=== PATIENT | female | born 1975 | race Caucasian/White ===

== ENCOUNTER 2023-06-27 07:54 | Outpatient (CLI) | payer OTHER, SELFPAY ==
--- NOTE | ~2023-06-27 | MM_ITS ---
EXAMINATION: MM screening renee BI w peter HISTORY: Screening mammogram TECHNIQUE: Craniocaudal and mediolateral oblique 3-D tomosynthesis images were obtained and synthetic 2-D images were generated. CAD analysis was submitted and interpreted. COMPARISON: No prior mammogram is available for comparison at this institution. BREAST PARENCHYMAL COMPOSITION: There are scattered areas of fibroglandular density. FINDINGS: No suspicious mass, calcification, or architectural distortion are identified in either og ast to suggest malignancy. IMPRESSION: 1. No mammographic evidence of malignancy. 2. Recommend routine screening mammography in one year. BI-RADS Category 1: Negative Reviewed, dictated and finalized at location A. Y CLERK
== END 2023-06-27 07:55 | disposition home or self-care (01) ==
PROVIDERS: PCP Family Medicine; Visit Provider Family Medicine
DX: Z12.31 Encounter for screening mammogram for malignant neoplasm of breast (principal)
CPT/HCPCS: 77063; 77067

== ENCOUNTER 2023-11-29 09:46 | Outpatient (CLI) | payer OTHER, SELFPAY ==
[2023-11-29 10:16] LABS: Basophils Percent Auto 0.7 % (0.2-1.2); Eosinophils Percent Auto 0.7 % (0-4.4); Hematocrit 41.3 % (37.0-47.0); Hemoglobin 14.3 g/dL (12.0-15.0); Immature Granulocyte Absolute 0.01 K/mm3 (0.00-0.031); Immature Granulocyte Percent A 0.2 % (0-0.5); Lymphocytes Absolute Auto 1.09 K/mm3 (0.9-3.2); Lymphocytes Percent Auto 20.3 % (18.3-44.2); Mean Corpuscular HGB Conc 34.6 g/dl (32-36); Mean Corpuscular Hemoglobin 33.1 pg (26-34); Mean Corpuscular Volume 95.6 fl (80-100); Mean Platelet Volume 10.9 fl (7.4-10.4); Monocytes Absolute Auto 0.4 K/mm3 (0.1-0.6); Monocytes Percent Auto 6.5 % (2.6-8.5); Neutrophils Absolute Auto 3.8 K/mm3 (1.3-6.7); Neutrophils Percent Auto 71.6 % (45.5-73.1); Platelet Count Result 213 k/mm3 (150-375); Red Blood Count 4.32 M/mm3 (4.2-5.4); Red Cell Distribution Width 11.5 % (11.5-14.5); White Blood Count 5.4 K/mm3 (4.5-10.0)
[2023-11-29 11:02] LABS: Vitamin D 25 Hydroxy 63.2 ng/mL
== END 2023-11-29 09:47 | disposition home or self-care (01) ==
LOC: ANHLAB 09:48
PROVIDERS: PCP Family Medicine; Visit Provider Nurse Practitioner Obstetrics & Gynecology
DX: N93.9 Abnormal uterine and vaginal bleeding, unspecified (principal)
CPT/HCPCS: 36415; 82306; 84443; 85025

== ENCOUNTER 2023-12-07 08:10 | Outpatient (CLI) | payer OTHER, SELFPAY ==
--- NOTE | ~2023-12-07 | US_ITS ---
US pelvic complete w TV Ordering provider: Skye Brown APRN History: . N93.9 - Abnormal uterine and vaginal bleeding, unspecified . Comparison: None. Technique: Transabdominal and endovaginal ultrasound of the pelvis (Doppler ultrasound interrogation techniques used as needed for this exam.) FINDINGS: CERVIX: Normal. UTERUS: Measures 7.8x 6.2x 4.6 cm in length which is within normal limits and is anteverted. No myom etrial masses. Hyperechoic area in the lower segment measures 0.5 x 0.3 x 0.4 cm which may be calcifi ed or hemorrhagic cyst or polyp. Follow-up advised. ENDOMETRIUM: Normal in thickness measuring 0.5 mm on the right and 0.6 on the left.. No endometrial m asses, cysts or fluid. CUL DE SAC: No free fluid. RIGHT OVARY: Normal in size measuring 3.9x 2.3x 1.8 cm. Normal echotexture. Doppler vascular flow pre sent. LEFT OVARY: Normal in size measuring 3.2x 2.1x 2.5 cm. Normal echotexture. Doppler vascular flow pres ent. ADNEXA: Normal. No mass. IMPRESSION: Hyperechoic area in the lower segment of the uterus which may be calcified lesion or hemorrhagic cyst or a small polyp. Follow-up advised. Otherwise, normal pelvic ultrasound. Reviewed, dictated and finalized at location A. IMPRESSION: Hyperechoic area in the lower segment of the uterus which may be calcified lesi on or hemorrhagic cyst or a small polyp. Follow-up advised. Otherwise, normal p elvic ultrasound.
== END 2023-12-07 08:11 ==
LOC: GOSHIMG 08:11
PROVIDERS: PCP Family Medicine; Visit Provider Nurse Practitioner Obstetrics & Gynecology
DX: N93.9 Abnormal uterine and vaginal bleeding, unspecified (principal)
CPT/HCPCS: 76830; 76856

== ENCOUNTER 2024-03-04 07:44 | Outpatient (CLI) | payer OTHER, SELFPAY | END 2024-03-04 07:45 | disposition home or self-care (01) | LOC: ANHSURGERY 07:50 | PROVIDERS: PCP Family Medicine; Visit Provider Obstetrics & Gynecology | DX: R10.2 Pelvic and perineal pain (principal) | CPT/HCPCS: 36415; 86850; 86900; 86901 ==

== ENCOUNTER 2024-03-06 09:09 | Inpatient (IN) | payer OTHER, SELFPAY ==
--- NOTE | 2023-12-25 14:35 | PC.NURSE ---
Report to the Outpatient Waiting Room, entrance under the green pavilion located off [facility], at time ___0745____ on date __[id number] . Planned Procedure Time: 0945 . Time changes happen often and if your time is changed the preop area will call you the afternoon before. - You and your visitor will be asked to self-screen and do not enter if you have any COVID symptoms. - A mask is optional within the hospital at this time. Patients may have clear liquids (water, carbonated beverages, clear teas, apple juice) until 3 hours prior to surgery with a maximum of 20 ounces. STOP LIQUIDS AT 0645. - No food from midnight until time of surgery - Take the following medications with a SIP of water the morning of surgery: fluxoxetine DO NOT STOP ANY OF YOUR OTHER PRESCRIPTION MEDICATIONS PRIOR TO SURGERY ?EXCEPT THE FOLLOWING- N/A Please no make-up, nail slovak, hairspray, perfume, deodorant, or body powder the day of surgery. No jewelry (including any body piercings) or valuables the day of surgery, leave them at home. Please take a shower or bath the night before, or the morning of, surgery with an antibacterial soap. Wear comfortable, loose fitting clothing. - Jewelry must be removed prior to entering the operating room. Rings and piercings that are not removed may be cut off. - The hospital will not accept responsibility for valuables. - Please leave all valuables, including medications, at home the day of surgery. If you are going home after surgery, a licensed vacuum truck driver must drive you home. - NO public transportation without another adult if you receive anesthesia. - We recommend that an adult stay with you for 24 hours following discharge. - We also recommend that you do not drive, make important decision, drink alcoholic beverages, or take any drugs that were not prescribed by your health care provider for at least 24 hours after your discharge time. Follow any additional instructions given to you from your surgeon. If you or anyone in your household have experienced Covid symptoms in the past week, please notify your surgeon or the nurse liaison at the phone number below for possible testing. Telephone instructions given to _patient/Shelly__and asked if any additional questions and then verbalized understanding. Patient advised to call surgeon office or pre surgery nurse liaison [phone] if any additional questions.
[2023-12-25 14:44] VITALS: BMI 25.0
[2024-02-26 14:45] VITALS: BMI 25.3
--- NOTE | 2024-02-26 14:58 | SUR.PREOP ---
Report to the Outpatient Waiting Room, entrance under the green pavilion located off [facility], at time 0600 on date 03/06/24. Planned Procedure Time: 0730.? Time changes happen often and if your time is changed the preop area will call you the afternoon before. - You and your visitor will be asked to self-screen and do not enter if you have any COVID symptoms. Please call surgeon if you need to reschedule. - A mask is optional within the hospital at this time. Patients may have clear liquids (water, carbonated beverages, clear teas, apple juice) until 3 hours prior to surgery with a maximum of 20 ounces. - No food from midnight until time of surgery and no smoking - Infants may have breast milk until 4 hours before surgery, formula 6 hours prior to surgery. - Children will be allowed to drink immediately following surgery.? If applicable, please bring a bottle or sippy cup to assist with drinking. Juice, water, soda, and popsicles are readily available.? For infants on formula, please bring formula the day of surgery.? Pacifiers are allowed. Take only the following medications with a SIP of water on the morning of surgery: ____fluoxetine___ DO NOT STOP ANY OF YOUR OTHER PRESCRIPTION MEDICATIONS PRIOR TO SURGERY EXCEPT THE FOLLOWING Medications to discontinue per physician n/a Date to take last dose Please no make-up, nail wolof, hairspray, perfume, deodorant, or body powder the day of surgery.? No jewelry (including any body piercings) or valuables the day of surgery, leave them at home.? Please take a shower or bath the night before, or the morning of, surgery with an antibacterial soap.? Wear comfortable, loose fitting clothing.? Children are encouraged to wear pajamas. - Jewelry must be removed prior to entering the operating room.? Rings and piercings that are not removed may be cut off. - The hospital will not accept responsibility for valuables.? - Please leave all valuables, including medications, at home the day of surgery. If you are going home after surgery, a licensed armored car driver must drive you home.? - NO public transportation without another adult if you receive anesthesia. - We recommend that an adult stay with you for 24 hours following discharge. - We also recommend that you do not drive, make important decision, drink alcoholic beverages, or take any drugs that were not prescribed by your health care provider for at least 24 hours after your discharge time. For Pediatric surgeries, we recommend two adults accompany the child home. Follow any additional instructions given to you from your surgeon. Telephone instructions given to _patient_and asked if any additional questions and then verbalized understanding. Patient advised to call surgeon office or pre surgery nurse liaison [phone] if any additional questions.
[2024-03-06] VITALS (18 sets, daily range): BP systolic 67–112; BP diastolic 34–63; PULSE 38–86; RESP 14–18; TEMP 36.3–37.3; O2SAT 95–100; BMI 26.1
--- NOTE | 2024-03-06 06:33 | WPDANESEPPF ---
Anes - Initial Pre Proc Eval Procedure: Operation Date: 03/06/24 07:30 Proposed Procedures p Robotic Assisted Total Vaginal Hysterectomy with Bilateral Salpingo-oophorectomy - Roberto Wadsworth MD Date/Time: 03/06/24 06:33 Surgeon: Roberto Wadsworth MD Pre Op Diagnosis: Pelvic Pain, Menorrhagia Patient Data Age: 48 Gender: F Height: 1.68 m Weight: 71.22 kg Allergies Allergy/AdvReac Type Severity Reaction Status Date / Time No Known Allergies Allergy Verified 02/26/24 15:00 Home Medications Medication Instructions Recorded Confirmed Type fluoxetine 20 mg capsule 20 mg PO DAILY #90 caps 01/04/24 02/26/24 Rx Patient hx anesthesia problems: none Family hx anesthesia problems: none Results Review: All pre-operative results and documents have been reviewed as part of the pre-operative evaluation. FORMERLY [facility], [facility]–1983 Surgical History Surgical History History of delivery History of tubal ligation Family History Family History Mother Hypertension Heart disease Social History Social History (Updated 03/06/24 @ 06:34 by Young Smith MD) Social History: Smoking packs per day: 1 Smoking cigarettes per day: 20.0 Years smoked: 30 Smoking pack-years: 30.00 Smoking status: Former smoker Tobacco type: cigarettes Second hand tobacco smoke exposure: Yes Smoking end date: 04/14/22 Alcohol intake: current Drinks per week: 1 Alcohol use details: occasionally Substance use: never Substance use type: does not use Last use: apr 2021 Lack of Transportation: No Lack of Food: Never True Current Housing: I Have Housing Concerned About Future Housing: No Difficulty Paying Gas/Electric Bills: No Difficulty Paying for Meds: No Currently Unemployed: No Education: Don't Know Difficulty w/ Childcare or Family Care: No Living arrangements: with family Occupation/Education: occupation Additional occupation/education comments: [employer] Gender identity (if verbalized by the patient): Female Sexual Orientation (if Verbalized by the Patient): Straight or Heterosexual Spiritual care concerns: No Anes - Eval Final PreProcedure Day of Procedure 03/06/24 06:33 Patient weight: normal Heart: regular rate and rhythm Lungs: clear to auscultation Airway: Mallampati scale class II Neurological: alert and oriented Last oral intake: >/= 8 hours ASA classification: II Emergent: no Anesthetic plan: proceed Anesthesia type and monitoring: general ETT and standard monitoring Results Review: All pre-operative results and documents have been reviewed as part of the pre-operative evaluation. Informed Consent: The patient's anesthetic plan and its attendant risks and benefits were discussed with the patient/family/POA. Questions were solicited and answers provided to the satisfaction of the patient/family/POA.
[2024-03-06] MEDS: LACTATED RINGERS 1,000 ML 30 ML IV CONT ×2 (06:50→09:15)
[2024-03-06] MEDS: SCOPOLAMINE 1 MG PATCH 1 PATCH TRANSDERM (07:02)
[2024-03-06] MEDS: KETOROLAC 15 MG/ML VIAL (*BKC) IV PUSH (07:02)
[2024-03-06] MEDS: ACETAMINOPHEN 500 MG TABLET 1000 MG PO ×3 (07:02→19:47)
--- NOTE | 2024-03-06 07:17 | WPDHPUPDATE1 ---
History and Physical Update Update Date/Time: 03/06/24 07:17 History and Physical has been reviewed, including an updated exam of the patient. There are NO changes in the patient's condition. Risks, benefits, and alternatives have been discussed and questions answered. Patient agrees to proceed with procedure.
[2024-03-06] MEDS: ceFAZolin 2 GM/D5W 50 ML 2 GM/50 ML BAG IVPB (07:26)
[2024-03-06 07:40] LABS: BEDSIDEPREGUCG Negative (Negative)
[2024-03-06] MEDS: BUPivacaine HCL 0.5% 10 ML AMP 9 ML INFILTRATE (08:06)
[2024-03-06] MEDS: fentaNYL CITRATE INJ (*CRX) 100 MCG/2 ML VIAL 25 MCG IV PUSH (09:18)
--- NOTE | 2024-03-06 09:19 | W.PM.PROC2 ---
Procedure Note - Detailed Date of Procedure 03/06/24 Pre-op Diagnosis Pelvic Pain, Menorrhagia Post-op Diagnosis Same Procedure Performed 1.Robotic assisted laparoscopic total vaginal hysterectomy with bilateral salpingo-oophorectomy 2. Lysis of adhesions Surgeon Roberto Wadsworth MD Admissions Assistant Arjun Anesthesia General Indications patient with long history of pelvic pain and menorrhagia she requested definitive treatment with hysterectomy. Findings Uterus slightly enlarged soft normal fallopian tubes and ovaries bilaterally, adhesion band at the middle lower abdomen which was lysed. Description of Procedure After informed consent was obtained she was taken to the operating room and general endotracheal anesthesia was administered. She was placed in low lithotomy position. An exam under anesthesia was performed. uterus palpated normal, no adnexal masses palpated. She was and prepped and draped in sterile fashion. Jackson catheter placed in bladder. Attention was turned to the vagina speculum was inserted. Single-tooth tenaculum placed on anterior lip of the cervix the uterus sounded to 9 cm. The cervix was dilated to a 8 Mondragon dilator. A size 8 uterine manipulator was inserted and secured. A size 3.0 colp cup was secured in the vagina. Then attention was turned to the abdomen with new sterile gloves. .25% marcaine injected subcutaneously. An incision was made horizontal 2 cm above the umbilicus. a Veress needle was inserted. Formation into the abdomen obtained with normal free flow of fluid and normal peritoneal pressures. A Pneumoperitoneum of 15 mm per mercury was obtained. A small incision was made approximately 6 cm lateral to the port on the left side of the port. A size 8mm robotic port was inserted under laparoscopic visualization into the abdomen on the left side. Attention was turned to the right side of the abdomen and Marcaine was injected subcutaneously and an incision was made and an 8 mm robotic port was inserted under laparoscopic visualization. Superior medial to this Marcaine was injected subcutaneously and a 10 mm health care assistant port was inserted under laparoscopic visualization. Robotic arms were secured to the ports. Attention was turned to the surgery consule. The right round ligament was ligated. The anterior leaf of the broad ligament was dissected anteriorly. The right side of the bladder was dissected from the lower uterine segment and upper cervix. The Infundibulopelvic ligament was ligated with vessel sealer. the ascending uterine vessels were ligated.The a posterior leaf of the broad ligament was further dissected. The uterine vessels The uterine vessels were ligated. Attention was turned to the left round ligament which was ligated and the anterior leaf of the broad ligament was dissected anteriorly. The rest of the vesicouterine peritoneum was dissected off of the uterus. Once the bladder was dissected below the colp cup then the Infundibulopelvic ligament was ligated. The ascending uterine vessels were ligated. The uterine arteries were ligated. The cardinal ligaments were ligated. This was done on both sides. An incision was made anterior colpotomy incision was made and this was carried around until the cervix was removed from the vagina. The uterus and cervix were removed through the vagina. The vaginal cuff was closed in a running fashion with 0 V lock suture with two sutures. Hemostasis was noted. The pelvis was irrigated. Hemostasis noted. Surgicil was applied in the pelvis. The patient was taken out of Trendelenburg position. The pneumoperitoneum was released and the ports were removed. The skin incisions were closed with 4 O Vicryl and Dermabond. The patient was extubated in operating room. The sponge count was correct x2. Patient tolerated procedure well and was taken to recovery in stable condition. Estimated Blood Loss 20 Urine Output 400 Drains No Packing No Pathology Yes ( uterus and cervix with right and left fallopian tube and ovaries) Complications No immediate complications Condition Stable Disposition PACU [facility] Billing Surgery - Charge Forward: Surgery Billing
[2024-03-06] MEDS: GLYCOPYRROLATE INJ (*SP) 0.2 MG/ML VIAL IV PUSH (09:37)
--- NOTE | 2024-03-06 11:40 | PC.NURSE ---
This patient, Leeann Will, was received from PACU on 03/06/24 at 1140. Patient/family oriented to unit policies and routines
[2024-03-06] MEDS: DEXTROSE 5%/0.45% SOD CHL 1,000 ML 125 ML IV CONT ×2 (11:58→19:50)
[2024-03-06] MEDS: SIMETHICONE 80 MG TAB.CHEW PO ×2 (12:41→19:47)
[2024-03-06] MEDS: KETOROLAC 30 MG/ML VIAL (*BKC) IV PUSH ×2 (12:42→19:47)
[2024-03-06] MEDS: ONDANSETRON INJ 4 MG/2 ML VIAL IV PUSH (16:50)
[2024-03-07 00:07] VITALS: BP 98/53; PULSE 68; RESP 16; TEMP 37.2; O2SAT 98
[2024-03-07 04:19] VITALS: BP 100/52; PULSE 58; RESP 16; TEMP 37.1; O2SAT 97
[2024-03-07] MEDS: ACETAMINOPHEN 500 MG TABLET 1000 MG PO ×2 (04:20→10:36)
[2024-03-07] MEDS: KETOROLAC 30 MG/ML VIAL (*BKC) IV PUSH (04:21)
[2024-03-07] MEDS: SIMETHICONE 80 MG TAB.CHEW PO ×2 (06:56→12:01)
[2024-03-07] MEDS: DOCUSATE SODIUM 100 MG CAPSULE PO (06:56)
[2024-03-07] MEDS: FLUoxetine HCL 20 MG CAPSULE PO (06:56)
[2024-03-07 07:40] VITALS: BP 103/57; PULSE 63; RESP 18; TEMP 37.5; O2SAT 100
--- NOTE | 2024-03-07 09:18 | WPDANESPN ---
Anes - Prog Note Post-Op Date/Time: 03/07/24 09:18 Cardiovascular status: normal Respiratory status: normal Airway patency: baseline Mental status: baseline Post-Op hydration status: normal Vital Signs: Last Vital Signs Temp 37.5 C 03/07/24 07:40 Pulse 63 03/07/24 07:40 Resp 18 03/07/24 07:40 BP 103/57 L 03/07/24 07:40 Pulse Ox 100 03/07/24 07:40 O2 Del Method Room Air 03/07/24 07:34 O2 Flow Rate 8 03/06/24 09:45 Pain Score (VAS): 2 I/O: Intake & Output 03/06/24 03/07/24 03/07/24 23:59 07:59 15:59 Intake Total 1240 1250 Output Total 500 925 Balance 740 325 Post-procedural complaints: none Patient Feedback: Patient satisfied with anesthetic care.
[2024-03-07] MEDS: IBUPROFEN 600 MG TABLET PO (10:37)
--- NOTE | 2024-03-20 10:24 | PM.DS ---
DS: Admitting Diagnosis Discharge Date 03/07/24 Admitting Diagnosis abnormal uterine bleeding DS: Discharge Diagnosis Discharge Diagnosis (1) Abnormal uterine bleeding: Code(s): N93.9 - Abnormal uterine and vaginal bleeding, unspecified Status: Acute DS: Summary Hospital Course Hospital Course: she was admitted on March 06. She underwent an uncomplicated robotic hysterectomy. Postop day 1 she had adequate pain control was tolerating regular food was ambulating positive flatus. She was discharged to home on postop day 1. Status at Discharge Functional status at discharge: independent ambulation Time Spent with Patient Time attestation: Total time spent providing and/or coordinating discharge services: Exam Const: General: healthy appearing and no acute distress HENMT: Head: normocephalic Eyes: General: appearance normal, both eyes and all related structures Resp: Effort & Inspection: normal respiratory effort GI: Inspection: normal to inspection Rectal Exam: other (incisions healing well) Skin: General skin exam: normal color Extrem: General: normal to inspection Psych: Appearance: grossly normal DS: Data Data Completed and Pending Completed studies during hospitalization: Pending at discharge 03/06/24 08:31 Surgical [PTH] Routine Discharge Plan Discharge Attending physician on discharge: Roberto Wadsworth Consulting providers: Young Smith; Richmond Waldron Discharging Clinician: Roberto Wadsworth Anticipated Discharge Date/Time: 03/07/24 10:27 Patient Disposition: Home, Self-Care Activity: may shower, no driving and pelvic rest Diet: regular Patient Instructions: Hysterectomy (DC) Stand Alone Forms: General Discharge Information Follow-up/Referrals: Roberto Wadsworth MD [Physician] - Keep Reg. Scheduled Appt. Discharge Medications: New hydrocodone-acetaminophen 5-325 mg Tablet 1 tablet PO Q3H PRN (Reason: Pain Rated 4-6) Qty: 25 0RF ibuprofen 600 mg Tablet 600 mg PO Q6HR Qty: 25 0RF Continued fluoxetine 20 mg capsule 20 mg PO DAILY Qty: 90 0RF Date of admission: 03/06/24 09:09 Primary Care Provider: Dea Telles Admitting Provider: Rboerto Wadsworth Attending physician on admission: Roberto Wadsworth Condition: Stable
== END 2024-03-07 13:03 | disposition home or self-care (01) | DRG 743 ==
LOC: ANHOB2 11:34
PROVIDERS: Admitting Provider Obstetrics & Gynecology; PCP Family Medicine; Visit Provider Obstetrics & Gynecology
PROC: 0UT9FZZ Resection of Uterus, Via Natural or Artificial Opening With Percutaneous Endoscopic Assistance (ICD-10-PCS; principal; 2024-03-06 07:30)
DX: N92.0 Excessive and frequent menstruation with regular cycle (principal); R10.2 Pelvic and perineal pain; Z87.891 Personal history of nicotine dependence; N73.6 Female pelvic peritoneal adhesions (postinfective)
CPT/HCPCS: 88307; 88342; A9270; J0690; J1100; J1596; J1885; J2250; J2405; J2704; J3010; J7030; J7120

== ENCOUNTER 2024-06-03 08:11 | Outpatient (CLI) | payer OTHER, SELFPAY ==
--- NOTE | ~2024-06-03 | CT_ITS ---
CT Scan of the Chest without Contrast: Clinical Indication: Lung cancer screening, nicotine dependence Technique: Contiguous sections were acquired throughout the chest without intravenous contrast. Dose reduction technique was used on this scan by utilizing automated exposure control and iterative recon struction technique. The dose-length product (DLP) was 75.00 mGy-cm. Findings: There is no evidence of any significant mediastinal, hilar or axillary lymphadenopathy. The mediastin al soft tissues appear normal. There is no evidence of pleural or pericardial effusion. The lungs are clear. No pulmonary nodules or infiltrates are noted. Images through the upper abdomen reveal no abnormalities. Impression: Lung RADS 1: Negative. 12 month follow-up screening CT advised. Reviewed, dictated and finalized at location . ATRIC CLINICAL DIETICIAN Impression: Lung RADS 1: Negative. 12 month follow-up screening CT advised.
== END 2024-06-03 08:12 | disposition home or self-care (01) ==
LOC: MICIMG 08:12
PROVIDERS: PCP Family Medicine; Visit Provider Student in an Organized Health Care Education/Training Program
DX: Z12.2 Encounter for screening for malignant neoplasm of respiratory organs (principal); Z87.891 Personal history of nicotine dependence
CPT/HCPCS: 71271

== ENCOUNTER 2024-06-04 12:31 | Outpatient (CLI) | payer OTHER, SELFPAY ==
--- NOTE | 2024-06-04 12:41 | ECHO_ITS ---
Patient Info Name: Leeann Will Age: 49 years : 1975 Gender: Female Ht: 66 in Wt: 162 lbs BSA: 1.86 m2 HR: 59 bpm BP: 114 / 61 mmHg Heart Rhythm: Sinus Rhythm Technical Quality: Good Exam Date: 06/04/2024 12:57 PM Exam Location: Echo Lab Patient Status: Outpatient Admit Date: 06/04/2024 Staff Ordering Physician: Nicole Ha PA-C Deputy Coroner Investigator: Tyra Mcfarland RDCS Attending Provider: Nicole Ha PA-C Referring Physician: Dilcia VILLANUEVA; Exam Type: CA echo doppler color flow Study Info Indications R01.1 - Cardiac murmur, unspecified Complete two-dimensional, color flow and Doppler transthoracic echocardiogram is performed. Summary 1. Complete two-dimensional, color flow and Doppler transthoracic echocardiogram is performed. 2. Left ventricular chamber dimension is normal. 3. Left ventricular systolic function is normal, estimated at 65-70%. 4. The left ventricular diastolic function is normal. 5. E/e' 8 is minimally elevated. 6. There is trace tricuspid valve regurgitation. 7. No pulmonary hypertension, estimated pulmonary arterial systolic pressure is 35 mmHg. 8. Dilated inferior vena cava with >50% collapse upon inspiration consistent with elevated right atrial pressure, 10 mmHg. Left Ventricle E/e' 8 is minimally elevated. Left ventricular chamber dimension is normal. Left ventricular systolic function is normal, estimated at 65-70%. The left ventricular diastolic function is normal. Right Ventricle Right ventricular systolic function is normal and with normal TAPSE 2.7 cm. Right ventricular chamber dimension is normal. Left Atria Left atrial chamber dimension is normal. Right Atria Right atrial chamber dimension is normal. Aortic Valve The aortic valve is trileaflet. There is no aortic valve stenosis. There is no aortic valve regurgitation. Pulmonic Valve There is no pulmonic regurgitation. Mitral Valve There is no mitral valve stenosis. There is no mitral valve regurgitation. Tricuspid Valve There is trace tricuspid valve regurgitation. No pulmonary hypertension, estimated pulmonary arterial systolic pressure is 35 mmHg. Pericardium/Pleural There is no pericardial effusion. Inferior Vena Cava Dilated inferior vena cava with >50% collapse upon inspiration consistent with elevated right atrial pressure, 10 mmHg. Aorta The aortic root size at the sinus of Valsalva is normal. Left Ventricular Outflow Tract Name Value Normal LVOT 2D LVOT Diameter 2.0 cm LVOT Doppler LVOT Peak Gradient 5 mmHg LVOT Mean Gradient 2 mmHg LVOT VTI 20 cm LVOT VTI/AV VTI Ratio 0.7 LVOT Stroke Volume 60 ml LVOT CO 3.5 l/min LVOT CI 1.9 l/min/m2 Pulmonic Valve Name Value Normal RVOT Doppler RVOT Peak Gradient 3 mmHg PV Doppler PV Peak Gradient 5 mmHg Mitral Valve Name Value Normal MV Doppler MV Decel [place] 619 cm/s2 MV PHT 48 ms MV Area (PHT) 4.6 cm2 4.0-5.0 MV Diastolic Function MV E Peak Velocity 102 cm/s MV A Peak Velocity 54 cm/s MV E/A 1.9 MV Decel Time 165 ms MV Annular TDI MV E/e' (Septal) 10.7 <=8.0 MV E/e' (Lateral) 7.7 <=8.0 MV E/e' (Average) 9.2 Tricuspid Valve Name Value Normal TV Regurgitation Doppler TR Peak Velocity 251 cm/s TR Peak Gradient 25 mmHg Estimated PAP/RSVP RA Pressure 10 mmHg <=5 PA Systolic Pressure 35 mmHg <36 RV Systolic Pressure 35 mmHg <36 Aorta Name Value Normal Ascending Aorta Ao Root Diameter (MM) 2.7 cm Ao Root Diam Index (MM) 1.4 cm/m2 Aortic Valve Name Value Normal AV Doppler AV Peak Velocity 132 cm/s AV Peak Gradient 7 mmHg AV Mean Gradient 3 mmHg AV VTI 29 cm AV Area (Cont Eq VTI) 2.1 cm2 >=3.0 AV Area (Cont Eq Marck) 2.4 cm2 AV Regurgitation 2D LVOT Area 3.0 cm2 Ventricles Name Value Normal LV Dimensions 2D/MM IVS Diastolic Thickness (2D) 0.7 cm 0.6-1.0 LVID Diastole (2D) 4.4 cm 3.8-5.2 LVIW Diastolic Thickness (2D) 0.7 cm 0.6-0.9 LVID Systole (2D) 2.3 cm 2.2-3.5 LVOT Diameter 2.0 cm LV Mass (2D Cubed) 89.95 g 67.00-162.00 LV Mass Index (2D Cubed) 48 g/m2 43-95 Relative Wall Thickness (2D) 0.30 LV Fractional Shortening/Ejection Fraction 2D/MM LV Fractional Shortening (2D) 46 % 27-45 LV EF (2D Teicholz) 78 % 54-74 LV Diastolic Volume (4C MOD) 45 ml LV EF (4C MOD) 62 % LV Diastolic Volume (2C MOD) 60 ml LV EF (2C MOD) 79 % LV Diastolic Volume (BP MOD) 52 ml 46-106 LV Diastolic Volume Index (BP MOD) 28 ml/m2 29-61 LV Systolic Volume (BP MOD) 15 ml 14-42 LV Systolic Volume Index (BP MOD) 8 ml/m2 8-24 LV EF (BP MOD) 71 % 54-74 LV Diastolic Length (4C) 7.7 cm LV Systolic Length (4C) 6.2 cm LV Stroke Volume (4C MOD) 27 ml Atria Name Value Normal LA Dimensions LA Dimension (MM) 4.0 cm 2.7-3.8 LA Volume (4C A-L) 42 ml LA Volume (BP A-L) 48 ml RA Dimensions RA Area (4C) 19.6 cm2 <=18.0 Report Signatures
--- OUTSIDE RECORDS SUMMARY | 2024-06-06 18:16 | XMS_ITS | Clinical Summary ---
Author Organization [facility] Address [address] [place] [address] Care Team Providers Care An/Ssn 2 4 Operator Name Role Phone Simon Porter MD Primary Care Provider [phone] Allergies No known active allergies Medications escitalopram (LEXAPRO) 10 mg tablet TAKE 1 TABLET(10 MG) BY MOUTH DAILY 90 tablet 12/10/2022 Active Active Problems Problem Noted Date Diagnosed Date BMI 25.0-25.9,adult 08/31/2022 Assessment & Plan (08/31/2022 8:09 AM CDT): Wt Readings from Last 3 Encounters: 08/31/22 70.9 kg (156 lb 6.4 oz) 03/29/22 68 kg (150 lb) 09/22/14 81.1 kg (178 lb 12.8 oz) Stable and at goal Subclinical hypothyroidism 08/31/2022 Anxiety 03/29/2022 Assessment & Plan (08/31/2022 8:09 AM CDT): Not at goal at this time Will do trial with lexapro 10 mg every day Assessment & Plan (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 Will start wellbutrin as it may also help her with quitting smoking Depression 09/28/2013 Overview (08/17/2016): DEPRESSIVE DISORDER NEC Assessment & Plan (08/31/2022 8:08 AM CDT): Not doing well at thsi time States that she is tired and montoya all the time States that she feels stressed, falls asleep early Had side effects to wellbutrin and stopped it States that she had some muscle and bone pain as well as weight gain Immunizations Name Administration Dates Next Due Influenza, Unspecified 03/29/2022(Deferr ed: Patient Refused),02/12/2022(Deferred: Patient Refused),07/13/2021(Deferred: Patient Refused) Tdap 08/15/2012 Surgical History Surgery Date Site/Laterality Comments SECTION 1997 section Medical History Medical History Date Comments Depression Depression Family History Relation Name Status Comments Brother Alive Father Alive Mother Alive Social History Tobacco Use Types Packs/Day Years Used Date Smoking Tobacco: Former Cigarettes 0.5 15 1 07/03/2006 - 05/02/2022 Alcohol Use Standard Drinks/Week Comments No 0 (1 standard drink = 0.6 oz pur e alcohol) PHQ-2 Answer Date Recorded PHQ-2 Total Score (If total score is 3 or more points, staff should administer the PHQ-9) 2 08/31/2022 Comments Unknown Sex and Gender Information Value Date Recorded Sex Assigned at Not on file Legal Sex 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 Gender Identity Not on file Sexual Orientation Not on file Obstetrics History Last Filed Vital Signs Vital Sign Reading Time Taken Comments Blood Pressure 110/66 08/31/2022 7:42 AM CDT Pulse 60 08/31/2022 7:42 AM CDT Temperature 36.7 ??C (98 ??F) 08/31/2022 7:42 AM CDT Respiratory Rate 16 08/31/2022 7:42 AM CDT Oxygen Saturation 98% 08/31/2022 7:42 AM CDT Inhaled Oxygen Concentration - - Weight 70.9 kg (156 lb 6.4 oz) 08/31/2022 7:42 A M CDT Height 167.6 cm (5' 6 ) 08/31/2022 7:42 AM CDT Body Mass Index 25.24 08/31/2022 7:42 AM CDT Plan of Treatment Health Maintenance Due Date Last Done Comments Breast Cancer Screening-Mammogram 1974 Cervical Cancer Screening 1974 Colon Cancer Screening-Colonoscopy 1974 Hepatitis C Screening 1974 Hepatitis B Screening 1992 Regular Well Visit/Exam 18-64 1992 DTaP/Tdap/Td Vaccine (2 - Td or Tdap) 08/15/2022 08/15/2012 Depression Screening 09/01/2023 08/31/2022, 03/29/2022 Influenza Vaccine (#1) 2024 Zoster Vaccine (1 of 2) 2024 Pneumococcal vaccine <65 Aged Out No longer eligible based on patient's age to complete this topic Insurance [employer] [facility] Care Teams An/Ssn 2 4 Operator Relationship Specialty Start Date End Date Simon Porter MD PCP - General Family Medicine 03/14/22
--- OUTSIDE RECORDS SUMMARY | 2024-06-06 18:16 | XMS_ITS | Referral Summary ---
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
--- OUTSIDE RECORDS SUMMARY | 2024-06-06 18:16 | XMS_ITS | Data Portability ---
Author Organization [facility] Address [address] [place] [address] Assessment Encounter Date Assessment Date Assessment LastModified by Organization Details LastModified Time 12/14/2017 12/14/2017 discussed heavy/painful cycles. SMokes an occ cigarette, not regular smoker - will try OCPs and no smoking. needs an annual in 3 mos ; might ne ablation candidate ( BTL in past) Not available 12/14/2017 12:35:59 07/17/2018 07/17/2018 First um nurse exam in 4-5 years likely. Overdue for mammo as well. Exam is normal. Didnt tolerate OCPs as RXd last December. ( nausea) Periodss tolerable at this point and still is smoking. 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 STill smoking, painful periods might require abaltion in future. ( pt. will call if interested) Not available 07/19/2019 14:56:41 01/21/2020 01/21/2020 pap repeated after ascus +HPV on annual in [address] Simmons may have done a LEEP in [place] Not available 01/21/2020 17:02:28 Plan of Treatment Reminders Order Date Submit Date Provider Last Modified By Organization Details Last Modified Time Details Appointments None recorded. Lab unlisted lab - igp, rfx aptima HPV ascu 2018 019 [facility], [address] [place] [address], [address], [place], [address], 9 16:17:56 unlisted lab - igp, rfx aptima HPV ascu 2019 020 [facility], [address], [address], [place], [address], 0 16:11:01 unlisted lab - igp, rfx aptima HPV ascu 2019 020 [facility], [address], [address], [place], [address], 0 07:26:20 SARS CoV 2 RNA (COVID-19) , QL, tube pusher-PCR, respirator y specimen - [facility] 1230 2019 020 [facility] (Lab), [address] [place] [address], [address], 0 09:43:15 Referral None recorded. Procedures None recorded. Surgeries None recorded. Imaging MAMMO, screening, digital, bilateral 2018 019 [facility] Not available 9 11:05:05 MAMMO, screening, digital, bilateral 2019 020 Not available 0 14:55:50 Medication Orders Sprintec (28) 0.25 mg-35 mcg tablet 2017 018 INTERFACE [facility], [address] [place] [address], [address], 8 12:33:35 Patient TargetsNo targets recorded. Patient Instructions Encounter Date Encounter Id Patient Instructions Last Modified By Organization Details Last Modified Time 12/14/2017 [id number] painful menstrua l cramps: care instructions Not available 12/14/2017 12:33:32 07/17/2018 [id number] learning about breast cancer screening Not available 07/17/2018 14:49:08 07/19/2019 [id number] learning about breast cancer screening Not available 07/19/2019 14:55:50 01/21/2020 [id number] abnormal Pap test: care instructions Not available 01/21/2020 16:55:03 04/06/2020 [id number] Reviewed the following recommendations: -Stay home and separate from others as much as possible. -Monitor your symptoms and seek medical attention for trouble breathing, persistent chest pain, confusion, or bluish lips or face. -Wear a mask if you must be around other people. -Wash your hands often for 20 seconds with soap and water and clean high-touch surfaces daily -You may discontinue home isolation if your symptoms are improving and it has been 10 days since symptoms started. [email or web address] Not available 04/06/2020 11:25:44 Reason for Referral None Reported. Results Created Date Observation Date Name Description Value Unit Range Abnormal Flag Note LastModifiedBy Organization Detail LastModifiedTime 07/18/19 19 07/19/2018 pap, IG + refle x HR HPV diagnosis: Vidhya PALOMINO FOR INTRA EPITH ELIAL CLINTON Gunter OR ALVARADO SANCHES . Not Available [facility] ([facility]) [address] [facility], [place], [address], 07/19/2018 16:17:56 07/18/19 19 07/19/2018 pap, IG + refle x HR HPV specimen adequacy: Vidhya stinson Satis facto ry for evalu ation . Endoc ervic al and/o r squam ous metap lasti c cells (endo cervi breanna compo nent) are prese nt. Not Available [facility] ([facility]) [address] [facility], [place], [address], 07/19/2018 16:17:56 07/18/1907/19/2018 pap, IG + refle x HR HPV clinician provided ICD10: Vidhya stinson Z01.4 19 Not Available [facility] ([facility]) [address] [facility], [place], [address], 07/19/2018 16:17:56 07/18/19 19 07/19/2018 pap, IG + refle x HR HPV performed by: Vidhya Sandoval th, Cytot luc stinson (ASCP ) Not Available [facility] ([facility]) [address] [place], [address], 07/19/2018 16:17:56 07/18/19 19 07/19/2018 pap, IG + refle x HR HPV . . Not Available [facility] ([facility]) [address] [place], [address], 07/19/2018 16:17:56 07/18/19 19 07/19/2018 pap, IG + refle x HR HPV note: Commen t The Pap smear is a scree sonido test desig jean to aid in the detec tion of angelica ligna nt and malig nant condi tions of the uteri ne cervi x. It is not a diagn ostic proce dure and shoul d not be used as the sole means of detec ting cervi breanna cance r. Both false -posi tive and false -nega tive repor ts do occur . Not Available [facility] ([facility]) [address] [facility], [place], [address], 07/19/2018 16:17:56 07/18/1907/19/2018 pap, IG + refle x HR HPV test methodology: Commen t This liqui d based ThinP rep(R ) pap test was scree jean with the use of an image guide d syste m. Not Available [facility] ([facility]) [address] [facility], [place], [address], 07/19/2018 16:17:56 07/18/19 19 07/19/2018 pap, IG + refle x HR HPV . Commen t The HPV DNA refle x crite benji were not met with this speci men resul t there fore, no HPV testi ng was perfo rmed. 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 ATYPI BREANNA SQUAM OUS CELLS OF UNDET ERMIN ED SIGNI FICAN CE (ASC- US). ENDOM ETRIA L CELLS ARE PRESE NT IN A WOMAN >= 45 YEARS OF AGE. THE ROSY ING OF ENDOM ETRIA L CELLS IN HARI- POST MENOP AUSAL WOMEN MAY REPRE SENT BENIG N ENDOM ETRIA L LESIO NS, HORMO NAL ALTER ATION S OR UNCOM MONLY , ENDOM ETRIA L ABNOR MALIT IES. Not Available [facility] ([facility]) [address] [facility], [place], [address], 07/25/2019 16:11:01 07/19/19 20 07/24/2019 pap, IG + refle x HR HPV specimen adequacy: Vidhya t Satis facto ry for evalu ation . Endoc ervic al and/o r squam ous metap lasti c cells (endo cervi breanna compo nent) are prese nt. Not Available [facility] ([facility]) [address] [facility], [place], [address], 07/25/2019 16:11:01 07/19/19 20 07/24/2019 pap, IG + refle x HR HPV clinician provided ICD10: Vidhya stinson Z01.4 19 Not Available [facility] ([facility]) [address] [place], [address], 07/25/2019 16:11:01 07/19/19 20 07/24/2019 pap, IG + refle x HR HPV performed by: Vidhya Del Angel on, Cytot echno logis t (ASCP ) Not Available [facility] ([facility]) [address] [place], [address], 07/25/2019 16:11:01 07/19/19 20 07/24/2019 pap, IG + refle x HR HPV electronical ly signed by: Vidhya sanabria MD, Patho logis t Not Available [facility] ([facility]) [address] [facility], [place], [address], 07/25/2019 16:11:01 07/19/19 20 07/24/2019 pap, IG + refle x HR HPV . . Not Available [facility] ([facility]) [address] [facility], [place], [address], 07/25/2019 16:11:01 07/19/19 20 07/24/2019 pap, IG + refle x HR HPV pathologist provided ICD10: Vidhya t R87.6 10 Not Available [facility] ([facility]) [address] [facility], [place], [address], 07/25/2019 16:11:01 07/19/19 20 07/24/2019 pap, IG + refle x HR HPV note: Commen t The Pap smear is a scree sonido test desig jean to aid in the detec tion of angelica ligna nt and malig nant condi tions of the uteri ne cervi x. It is not a diagn ostic proce dure and shoul d not be used as the sole means of detec ting cervi breanna cance r. Both false -posi tive and false -nega tive repor ts do occur . Not Available [facility] ([facility]) [address] [facility], [place], [address], 07/25/2019 16:11:01 07/19/19 20 07/24/2019 pap, IG + refle x HR HPV test methodology: Commen t This liqui d based ThinP rep(R ) pap test was scree jean with the use of an image guide marco a systirma m. Not Available [facility] ([facility]) [address] [place], [address], 07/25/2019 16:11:01 07/19/19 20 07/24/2019 pap, IG + refle x HR HPV . Commen t See below for HPV testi ng resul ts. Not Available [facility] ([facility]) [address] [facility], [place], [address], 07/25/2019 16:11:01 07/19/19 20 07/25/2019 pap, IG + refle x HR HPV HPV aptima Positi ve negati ve abnormal This nucle ic acid ampli ficat ion test detec ts fourt een high- risk HPV types (16,1 8,31, 33,35 ,39,4 5,51, 52,56 ,58,5 9,66, 68) witho ut diffe renti ation . Not Available [facility] ([facility]) [address] [facility], [place], [address], 07/25/2019 16:11:01 01/21/20 20 01/22/2020 pap, IG + refle x HR HPV diagnosis: Vidhya RAMIREZ GEORGETTE FOR INTRA EPITH ELIAL CLINTON Gunter OR ALVARADO SANCHES . Not Available [facility] ([facility]) [address] [facility], [place], [address], 01/23/2020 07:26:20 01/21/20 20 01/22/2020 pap, IG + refle x HR HPV specimen adequacy: Vidhya stinson Satis facto corona for evalu ation . Endoc ervic al and/o r squam ous metap lasti c cells (endo cervi breanna compo nent) are prese nt. Not Available [facility] ([facility]) [address] [facility], [place], [address], 01/23/2020 07:26:20 01/21/20 20 01/22/2020 pap, IG + refle x HR HPV clinician provided ICD10: Vidhya stinson R87.6 10 Not Available [facility] ([facility]) [address] [facility], [place], [address], 01/23/2020 07:26:20 01/21/20 20 01/22/2020 pap, IG + refle x HR HPV performed by: Vdihya Pizano , Cytot luc stinson (ASCP ) Not Available [facility] ([facility]) [address] [facility], [place], [address], 01/23/2020 07:26:20 01/21/2001/22/2020 pap, IG + refle x HR HPV . . Not Available [facility] ([facility]) [address] [facility], [place], [address], 01/23/2020 07:26:20 01/21/2001/22/2020 pap, IG + refle x HR HPV note: Commen t The Pap smear is a scree sonido test desig jean to aid in the detec tion of angelica ligna nt and malig nant condi tions of the uteri ne cervi x. It is not a diagn ostic proce dure and shoul d not be used as the sole means of detec ting cervi breanna cance r. Both false -posi tive and false -nega tive repor ts do occur . Not Available [facility] ([facility]) [address] [facility], [place], [address], 01/23/2020 07:26:20 01/21/2001/22/2020 pap, IG + refle x HR HPV test methodology: Commen t This liqui d based ThinP rep(R ) pap test was scree jean with the use of an image guide d syste m. Not Available [facility] ([facility]) [address] [facility], [place], [address], 01/23/2020 07:26:20 01/21/2001/22/2020 pap, IG + refle x HR HPV . Commen t The HPV DNA refle x crite benji were not met with this speci men resul t there fore, no HPV testi ng was perfo rmed. Not Available [facility] ([facility]) [address] [facility], [place], [address], 01/23/2020 07:26:20 07/27/19 19 07/24/2018 MAMMO , scree sonido, digit al, bilat eral No observ ation record ed. [facility] [address], [place], [address], 07/26/2018 11:05:25 Result Notes None recorded. Problems Name Problem SNOMED Code Status Onset Date Resolution Date Notes Provider Name and Address Organization Details Recorded Time Menometrorrhag ia 833581589 Active 2017 Lupe gunter MA null, [facility] 8 12:20:21 Problem Notes None recorded. Procedures Surgical History Date Name Laterality Status Provider Name and Address Organization Details Recorded Time 0 Date of Last Pap Smear completed Lupe Garcia MA [facility] 07/25/2019 17:14:29 9 Most Recent Mammogram completed Brandi Maria RN [facility] 07/26/2018 11:05:40 3 Tubal Ligation completed Lupe Garcia MA [facility] 12/14/2017 12:23:50 8 delivery completed Brandi Maria RN [facility] 01/09/2018 15:25:09 Imaging Results Imaging Date Name Status LastModified by Organiz ation Details LastModified Time 07/24/2018 MAMMO, screening, digital, bilateral completed [facility] [address], [place], [address], 07/26/2018 11:05:25 Procedure Notes None recorded. Medical Equipment None Reported. Allergies No known drug allergies Medications Name Sig Start Date Stop Date Status Note LastModified by Organization Details LastModified Time Sprintec (28) 0.25 mg-35 mcg tablet Take 1 tablet every day by oral route. 018 active Not Available Not Available Not Avai lable Vitals Date Recorded Body height Provider Name an d Address Organization Details Last Updated DateTime 12/14/2017 168.91 cm Lupe Garcia MA [facility] 12/14/2017 12:19:14 Date Recorded Body mass index (BMI) Body weight Provider Name and Address Organization Details Last Updated DateTime 12/14/2017 25 kg/m2 19444.44 g Lupe RutledgeALON dubon [facility] 12/14/2017 12:19:24 Date Recorded Body height Provider Name an d Address Organization Details Last Updated DateTime 07/17/2018 168.91 cm Lupe Garcia MA [facility] 07/17/2018 14:40:00 Date Recorded Body mass index (BMI) Body weight Provider Name and Address Organization Details Last Updated DateTime 07/17/2018 23.7 kg/m2 59549.54 g Lupe Garcia MA [facility] 07/17/2018 14:42:30 Date Recorded Body height Provider Name an d Address Organization Details Last Updated DateTime 07/19/2019 168.91 cm Lupe Garcia MA [facility] 07/19/2019 14:32:09 Date Recorded Body mass index (BMI) Body weight Provider Name and Address Organization Details Last Updated DateTime 07/19/2019 24.7 kg/m2 70178.25 g Lupe Garcia MA [facility] 07/19/2019 14:41:20 Date Recorded Body height Provider Name an d Address Organization Details Last Updated DateTime 01/21/2020 168.91 cm Freida Raygoza [facility] 12/2019 16:52:27 Date Recorded Body mass index (BMI) Body weight Provider Name and Address Organization Details Last Updated DateTime 01/21/2020 24.6 kg/m2 64112.46 g Freida Raygoza [facility] 01/21/2020 16:52:36 Date Recorded Systolic blood pressure Diastolic blood pressure Provider Name and Address Organization Details Last Updated DateTime 12/14/2017 118 mm[Hg] 80 mm[Hg] Luperajiv Garcia MA [facility] 12/14/2017 12:19:40 Date Recorded Systolic blood pressure Diastolic blood pressure Provider Name and Address Organization Details Last Updated DateTime 07/17/2018 106 mm[Hg] 75 mm[Hg] Lupe Garcia MA [facility] 07/17/2018 14:46:11 Date Recorded Systolic blood pressure Diastolic blood pressure Provider Name and Address Organization Details Last Updated DateTime 07/19/2019 106 mm[Hg] 82 mm[Hg] Lupe Garcia MA [facility] 07/19/2019 14:41:33 Date Recorded Systolic blood pressure Diastolic blood pressure Provider Name and Address Organization Details Last Updated DateTime 01/21/2020 108 mm[Hg] 66 mm[Hg] SERENA Pope [facility] 01/21/2020 16:52:47 Social History Question Answer Notes LastModified by Organizat ion Details LastModified Time Tobacco Smoking Status Current Every Day Smoker Lupe Garcia MA null, [facility] 12/14/2017 12:22:39 What Was The Date Of Your Most Recent Tobacco Screening? 07/17/2018 Information n ot available 12/06/2018 How Much Tobacco Do You Smoke? 0.25 PPD [email or web address] Information not available 12/14/2017 Sex: Female Functional Status None recorded. Mental Status None recorded. Family History Nothing Reported Notes:Family hx. of other [place] Medical History Condition Response Depression Y Gynecological History Statement/Question Response Abnormal Pap Y Date of Last Pap Smear 07/19/2019 Current Control Method Tubal Ligat ion Most Recent Mammogram 07/24/2018 LMP Definite Obstetrics History GPAL:G 3 P 1 0 2 1 Type Value Full Term 1 Spontaneous 2 Living 1 Total 3 Past Encounters Encounter ID Performer Location Encounter Start Date Encounter Closed Date Diagnosis/Indication Diagnosis SNOMED-CT Code Diagnosis ICD10 Code Diagnosis Note [id number] MD Leonard Suarez 14 OB [address] [facility] [place] [address] 12/14/2017 11:49:03 12/20/2017 10:27:49 Dysmenorrhea 712159105 N94.6 [id number] MD Leonard Suarez 14 OB [address] [facility] [place] [address] 07/17/2018 14:12:29 07/17/2018 16:51:15 Gynecologic examination 82615472 Z01.419 Screening for malignant neoplasm of breast 159830282 Z12.31 [id number] MD Leonard Suarez 14 OB 4 [facility] [place] [address] 07/19/2019 14:30:04 07/22/2019 09:28:07 Gynecologic examination 15800026 Z01.419 Screening for malignant neoplasm of breast 642492671 Z12.31 Dysmenorrhea 250419888 N 94.6 [id number] MD Loenard Suarez 14 OB 4 [facility] [address] [place] [address] 01/21/2020 16:44:27 01/22/2020 11:24:58 Atypical squamous cells of undetermined significance on cervical Papanicolaou smear 350610346 R87.712 [id number] Barbara Ioana, CELERY [employer] [facility] [address] [place] [address] 04/06/2020 09:59:24 04/07/2020 09:58:36 Viral screening 000282441 Z11.59 Viral syndrome 616007904 B34.9 Health Concerns Section Related Observation LastModified by Organization Detai ls LastModified Time None Recorded Concern Status LastModified by Organization Details LastModified Time None Recorded Advance Directives Directive None Recorded Payers Encounter Date Sequence Insurance Name Policy Number Policy Chavez Covered Member ID Chavez Member ID Guarantor Name 12/14/2017 1 [employer] - CHOICE (POS II) [id number] Leeann Tite [id number] Leeann M Tite 07/17/2018 1 [employer] - CHOICE (POS II) [id number] Leeann Tite [id number] Leeann M Tite 07/19/2019 1 [employer] - CHOICE (POS II) [id number] Leeann Tite [id number] Leeann M Tite 01/21/2020 1 [employer] - CHOICE (POS II) [id number] Leeann Tite [id number] Leeann M Tite 04/06/2020 1 [employer] - CHOICE (POS II) [id number] Leeann Tite [id number] Leeann M Tite Notes Date Note Type Note Provider Name and Address Organization Details Recorded Time 07/17/2018 text/html Annual GYNReport ed bypatient.Menstrua l cycle:Normal menses Urinary symptoms:No hematuria; No incontinence Vulva:No genital lesion Vagina:Normal vaginal discharge Breast:No breast pain; No breast lump; No nipple discharge Sexual complaints:No sexual complaints; No pain during intercourse; Normal libido Menopausal Symptoms:No menopausal symptoms; Normal vaginal lubrication Psychological symptoms:No depression; No anxiety; No PMDD Husam Barajas MD Attn: [address] [place], [address], [facility] 07/17/2018 14:56:30 07/19/2019 text/html Annual GYNReport ed bypatient.Menstrua l cycle:Severe dysmenorrhea Urinary symptoms:No hematuria; No incontinence Vulva:No genital lesion Vagina:Normal vaginal discharge Breast:No breast pain; No breast lump; No nipple discharge Current Contraception:Tuba l ligation Sexual complaints:No sexual complaints; No pain during intercourse; Normal libido Menopausal Symptoms:No menopausal symptoms; Normal vaginal lubrication Psychological symptoms:No depression; No anxiety; No PMDD Husam Barajas MD Attn: [address] [place], [address], [facility] 07/19/2019 14:56:55 04/06/2020 text/html Pt with a histor y of tobacco use is requesting COVID-19 testing; as pt denies s/s. Pt reports being in contact with someone (co-worker) who recently tested positive. MAKI Pfeiffer Attn: [address] [place], [address], [facility] 04/06/2020 11:26:00 OBGyn Episode No OBEpisode recorded.
== END 2024-06-04 12:32 | disposition home or self-care (01) ==
PROVIDERS: PCP Student in an Organized Health Care Education/Training Program; Visit Provider Student in an Organized Health Care Education/Training Program
DX: R00.2 Palpitations (principal); R01.1 Cardiac murmur, unspecified
CPT/HCPCS: 93242; 93306

== ENCOUNTER 2024-10-04 01:48 | Day surgery (SDC) | payer OTHER, SELFPAY ==
[2024-09-26 10:10] VITALS: BMI 26.4
--- OUTSIDE RECORDS SUMMARY | 2024-10-04 01:49 | XMS_ITS | Clinical Summary ---
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 Gender Identity Not on file Sexual Orientation Not on file Obstetrics History Last Filed Vital Signs Vital Sign Reading Time Taken Comments Blood Pressure 110/66 08/31/2022 7:42 AM CDT Pulse 60 08/31/2022 7:42 AM CDT Temperature 36.7 C (98 F) 08/31/2022 7:42 AM CDT Respiratory Rate 16 [...] 08/15/2022 08/15/2012 Depression Screening 09/01/2023 08/31/2022, 03/29/2022 Zoster Vaccine (1 of 2) 2024 Influenza Vaccine (Season Ended) 2025 Pneumococcal vaccine <65 Aged Out No longer eligible based on patient's age to complete this topic Insurance [facility] [facility] Address: [address] [address] [place] [address] [employer] Address: [address] [address] [place] [address] Care Teams Directory Assistance Operator Relationship Specialty Start Date End Date Simon Porter MD PCP - General Family Medicine 03/14/22
--- OUTSIDE RECORDS SUMMARY | 2024-10-04 01:49 | XMS_ITS | Referral Summary ---
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
--- OUTSIDE RECORDS SUMMARY | 2024-10-04 01:49 | XMS_ITS | Data Portability ---
Author Organization [facility] Address [address] [place] [address] Assessment Encounter Date Assessment Date Assessment LastModified by Organization Details LastModified Time 12/14/2017 12/14/2017 discussed heavy/painful cycles. SMokes an occ cigarette, not regular smoker - will try OCPs and no smoking. 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 Overdue for mammo as well. Exam is normal. Didnt tolerate OCPs as RXd last December. ( nausea) Periodss tolerable at this point and still is smoking. Not available 07/17/2018 14:56:19 07/19/2019 07/19/2019 Lab Support Technician exam normal. STill smoking, painful periods might [...] Modified Time Details Appointments None recorded. Lab SARS CoV 2 RNA (COVID-19) , QL, business development engineer-PCR, respirator y specimen - [facility] [address] [facility] (Lab), [address] [place], [address], 0 09:43:15 unlisted lab - igp, rfx aptima HPV ascu 2019 020 [facility], [address], [address], [place], [address], 0 07:26:20 unlisted lab - igp, rfx aptima HPV ascu 2019 020 [facility], [address], [address], [place], [address], 0 16:11:01 unlisted lab - igp, rfx aptima HPV ascu 2018 019 [facility], [address], [address], [place], [address], 9 16:17:56 Referral None recorded. Procedures None recorded. Surgeries None recorded. Imaging MAMMO, screening, digital, bilateral 2019 020 Not available 0 14:55:50 MAMMO, screening, digital, bilateral 2018 019 [facility] Not available 9 11:05:05 Medication Orders Sprintec (28) 0.25 mg-0.035 mg tablet 2017 018 INTERFACE [facility], [address] [place] [address], [address], 8 12:33:35 Patient TargetsNo targets recorded. Patient Instructions Encounter Date Encounter Id Patient Instructions Last Modified By Organization Details Last Modified Time 12/14/2017 [id number] painful menstrua l cramps: care instructions gter Not available 12/14/2017 12:33:32 07/17/2018 [id number] learning about breast cancer screening gturner Not available 07/17/2018 14:49:08 07/19/2019 [id number] learning about breast cancer screening gturner Not available 07/19/2019 14:55:50 01/21/2020 [id number] abnormal Pap test: care instructions Not available 01/21/2020 16:55:03 04/06/2020 [id number] Reviewed the following recommendations: -Stay home and [...] OR ALVARADO SANCHES . Not Available [facility] ([facility]) [address] [facility] [address], [place], [address], 07/19/2018 16:17:56 07/18/19 19 07/19/2018 pap, IG + refle x HR HPV specimen adequacy: Vidhya stinson Satis facto ry for evalu ation . Endoc ervic al and/o r squam ous metap lasti c cells (endo cervi breanna compo nent) are prese nt. Not Available [facility] ([facility]) [address] [facility] [address], [place], [address], 07/19/2018 16:17:56 07/18/19 19 07/19/2018 pap, IG + refle x HR HPV clinician provided ICD10: Vidhya stinson Z01.4 19 Not Available [facility] ([facility]) [address] [place], [address], 07/19/2018 16:17:56 07/18/19 19 07/19/2018 pap, IG + refle x HR HPV performed by: Vidhya Sandoval th, Cytot echno logis t (ASCP ) Not Available [facility] ([facility]) [address] [facility] [address], [place], [address], 07/19/2018 16:17:56 07/18/19 19 07/19/2018 pap, IG + refle x HR HPV . . Not Available [facility] ([facility]) [address] [place], [address], 07/19/2018 16:17:56 07/18/19 19 07/19/2018 pap, IG [...] ts do occur . Not Available [facility] ([facility]) [address] [facility], [place], [address], 07/19/2018 16:17:56 07/18/19 19 07/19/2018 pap, IG + refle x HR HPV test methodology: Commen t This liqui d based ThinP rep(R ) pap test was scree jean with the use of an image guide d syste m. Not Available [facility] ([facility]) [address] [place], [address], 07/19/2018 16:17:56 07/18/19 19 07/19/2018 pap, IG + refle x HR HPV . Commen t The HPV DNA refle x crite benji were not met with this speci men resul t there fore, no HPV testi ng was perfo rmed. Not Available [facility] ([facility]) [address] [facility] [address], [place], [address], 07/19/2018 16:17:56 07/19/19 20 07/24/2019 pap, IG + refle x HR HPV diagnosis: Vidhya t abnormal EPITH ELIAL CELL ABNOR MALIT [...] L ABNOR MALIT IES. Not Available [facility] ([facility]) [address] [facility], [place], [address], 07/25/2019 16:11:01 07/19/19 20 07/24/2019 pap, IG + refle x HR HPV specimen adequacy: Vidhya t Satis facto ry for evalu ation . Endoc ervic al and/o r squam ous metap lasti c cells (endo cervi breanna compo nent) are prese nt. Not Available [facility] ([facility]) [address] [facility], [place], [address], 07/25/2019 16:11:01 07/19/19 20 07/24/2019 pap, IG + refle x HR HPV clinician provided ICD10: Vidhya stinson Z01.4 19 Not Available [facility] ([facility]) [address] [place], [address], 07/25/2019 16:11:01 07/19/19 20 07/24/2019 pap, IG + refle x HR HPV performed by: Vidhya Del Angel on, Cytot echno logis t (ASCP ) Not Available [facility] ([facility]) [address] [place], [address], 07/25/2019 16:11:01 07/19/19 20 07/24/2019 pap, IG + refle x HR HPV electronical ly signed by: Vidhya sanabria MD, Patho logis t Not Available [facility] ([facility]) [address] [place], [address], 07/25/2019 16:11:01 07/19/19 20 07/24/2019 pap, IG + refle x HR HPV . . Not Available [facility] ([facility]) [address] [facility] [address], [place], [address], 07/25/2019 16:11:01 07/19/19 20 07/24/2019 pap, IG + refle x HR HPV pathologist provided ICD10: Commen t R87.6 10 Not Available [facility] ([facility]) [address] [facility], [place], [address], 07/25/2019 16:11:01 07/19/19 20 07/24/2019 pap, IG [...] ts do occur . Not Available [facility] ([facility]) [address] [facility] [address], [place], [address], 07/25/2019 16:11:01 07/19/19 20 07/24/2019 pap, IG + refle x HR HPV test methodology: Commen t This liqui d based ThinP rep(R ) pap test was scree jean with the use of an image guide marco a systirma m. Not Available [facility] ([facility]) [address] [place], [address], 07/25/2019 16:11:01 07/19/19 20 07/24/2019 pap, IG + refle x HR HPV . Commen t See below for HPV testi ng resul ts. Not Available [facility] ([facility]) [address] [facility] [address], [place], [address], 07/25/2019 16:11:01 07/19/19 20 07/25/2019 pap, IG + refle x HR HPV HPV aptima Positi ve negati ve abnormal This nucle ic acid ampli ficat ion test detec ts fourt een high- risk HPV types (16,1 8,31, 33,35 ,39,4 5,51, 52,56 ,58,5 9,66, 68) witho ut diffe renti ation . Not Available [facility] ([facility]) [address] [facility] [address], [place], [address], 07/25/2019 16:11:01 01/21/20 20 01/22/2020 pap, IG + refle x HR HPV diagnosis: Vidhya stinson NEGAT GEORGETTE FOR INTRA EPITH ELIAL CLINTON Gunter OR ALVARADO SANCHES . Not Available [facility] ([facility]) [address] [facility] [address], [place], [address], 01/23/2020 07:26:20 01/21/20 20 01/22/2020 pap, IG + refle x HR HPV specimen adequacy: Vidhya stinson Satis facto ry for evalu ation . Endoc ervic al and/o r squam ous metap lasti c cells (endo cervi breanna compo nent) are prese nt. Not Available [facility] ([facility]) [address] [facility] [address], [place], [address], 01/23/2020 07:26:20 01/21/20 20 01/22/2020 pap, IG + refle x HR HPV clinician provided ICD10: Vidhya stinson R87.6 10 Not Available [facility] ([facility]) [address] [facility] [address], [place], [address], 01/23/2020 07:26:20 01/21/20 20 01/22/2020 pap, IG + refle x HR HPV performed by: Vidhya Pizano , Cytot luc stinson (ASCP ) Not Available [facility] ([facility]) [address] [facility] [address], [place], [address], 01/23/2020 07:26:20 01/21/2001/22/2020 pap, IG + refle x HR HPV . . Not Available [facility] ([facility]) [address] [facility], [place], [address], 01/23/2020 07:26:20 01/21/2001/22/2020 pap, IG + refle [...] ts do occur . Not Available [facility] ([facility]) [address] [facility] [address], [place], [address], 01/23/2020 07:26:20 01/21/2001/22/2020 pap, IG + refle x HR HPV test methodology: Commen t This liqui d based ThinP rep(R ) pap test was scree jean with the use of an image guide d syste m. Not Available [facility] ([facility]) [address] [facility] [address], [place], [address], 01/23/2020 07:26:20 01/21/2001/22/2020 pap, IG + refle x HR HPV . Commen t The HPV DNA refle x crite benji were not met with this speci men resul t there fore, no HPV testi ng was perfo rmed. Not Available [facility] ([facility]) [address] [facility] [address], [place], [address], 01/23/2020 07:26:20 07/27/19 19 07/24/2018 MAMMO , scree sonido, digit al, bilat eral No observ ation record ed. [facility] [address], [place], [address], 07/26/2018 11:05:25 Result Notes None recorded. Problems Name Problem SNOMED Code Status Onset Date Resolution Date Notes Provider Name and Address Organization Details Recorded Time Menometrorrhag ia 728252823 Active 2017 Lupe gunter MA null, [facility] 8 12:20:21 Problem Notes None recorded. Procedures Surgical History Date Name Laterality Status Provider Name and Address Organization Details Recorded Time 0 Date of Last Pap Smear completed Lupe Garcia MA [facility] 07/25/2019 17:14:29 9 Most Recent Mammogram completed Brandi Maria RN [facility] 07/26/2018 11:05:40 3 Tubal Ligation completed Lupe Garcia MA [facility] 12/14/2017 12:23:50 8 delivery completed Brandi Maria RN [facility] 01/09/2018 15:25:09 Imaging Results Imaging Date Name Status LastModified by [facility] Details LastModified Time 07/24/2018 MAMMO, screening, digital, bilateral completed [facility] [address], [place], [address], 07/26/2018 11:05:25 Procedure Notes None recorded. Medical Equipment None Reported. Allergies No known drug allergies Medications Name Sig Start Date Stop Date Status Note LastModified by Organization Details LastModified Time Sprintec (28) 0.25 mg-0.035 mg tablet Take 1 tablet every day by oral route. 018 active Not Available Not Available Not Avai lable Vitals Date Recorded Body height Body mass index (BMI) Body weight Systolic blood pressure Diastolic blood pressure Provider Name and Address Organization Details Last Updated DateTime 12/14/2017 168.91 cm 25 kg/m2 16488.44 g 118 mm[Hg] 80 mm[Hg] Lupe gunter MA [facility] 8 12:19:40 Date Recorded Body height Body mass index (BMI) Body weight Systolic blood pressure Diastolic blood pressure Provider Name and Address Organization Details Last Updated DateTime 07/17/2018 168.91 cm 23.7 kg/m2 62274.54 g 106 mm[Hg] 75 mm[Hg] Lupe gunter MA [facility] 9 14:46:11 Date Recorded Body height Body mass index (BMI) Body weight Systolic blood pressure Diastolic blood pressure Provider Name and Address Organization Details Last Updated DateTime 07/19/2019 168.91 cm 24.7 kg/m2 46919.25 g 106 mm[Hg] 82 mm[Hg] Lupe gunter MA [facility] 0 14:41:33 Date Recorded Body height Body mass index (BMI) Body weight Systolic blood pressure Diastolic blood pressure Provider Name and Address Organization Details Last Updated DateTime 01/21/2020 168.91 cm 24.6 kg/m2 33342.46 g 108 mm[Hg] 66 mm[Hg] Freida Raygoza Garrett [facility] 0 16:52:47 Social History Question Answer Notes LastModified by Organizat ion Details LastModified Time Tobacco Smoking Status Current Every Day Smoker Lupe Garcia MA null, [facility] 12/14/2017 12:22:39 What Was The Date Of [...] SNOMED-CT Code Diagnosis ICD10 Code Diagnosis Note [id number] MD [place] Suarez [address] [facility] [place] [address] 12/14/2017 11:49:03 12/20/2017 10:27:49 Dysmenorrhea 653757222 N94.6 [id number] MD [place] Suarez [address] [facility] [place] [address] 07/17/2018 14:12:29 07/17/2018 16:51:15 Gynecologic examination 79458160 Z01.419 Screening for malignant neoplasm of breast 714323419 Z12.31 [id number] MD [place] Suarez [address] [facility] [place] [address] 07/19/2019 14:30:04 07/22/2019 09:28:07 Gynecologic examination 19624173 Z01.419 Screening for malignant neoplasm of breast 828674035 Z12.31 Dysmenorrhea 626908460 N 94.6 [id number] MD [place] Suarez [address] [facility] [place] [address] 01/21/2020 16:44:27 01/22/2020 11:24:58 Atypical squamous cells of undetermined significance on cervical Papanicolaou smear 091205507 R87.134 [id number] Barbara Triplett [facility] SE[facility] [address] [place] [address] 04/06/2020 09:59:24 04/07/2020 09:58:36 Viral screening 857560979 Z11.59 Viral syndrome 205566512 B34.9 Health Concerns Section Related Observation LastModified by Organization Detai ls LastModified Time None Recorded Concern Status LastModified by Organization Details LastModified Time None Recorded Advance Directives Directive None Recorded Payers Encounter Date Sequence Insurance Name Policy Number Policy Chavez Covered Member ID Chavez Member ID Guarantor Name 12/14/2017 1 [employer] (POS II) [id number] Leeann Tite [id number] Leeann Perez Tite 07/17/2018 1 [employer] (POS II) [id number] Leeann Tite [id number] Leeann M Tite 07/19/2019 1 [employer] (POS II) [id number] Leeann Tite [id number] Leeann Will 01/21/2020 1 [employer] (POS II) [id number] Leeann Will [id number] Leeann Will 04/06/2020 1 [employer] (POS II) [id number] Leeann Will [id number] Leeann Will Notes Date Note Type Note Provider Name [...] PMDD Husam Barajas MD Attn: Account[address] [place], [address], [facility] 07/17/2018 14:56:30 07/19/2019 text/html Annual GYNReport ed [...] PMDD Husam Barajas MD Attn: [address] [place], [address], [facility] 07/19/2019 14:56:55 04/06/2020 text/html Pt with a histor y of tobacco use is requesting COVID-19 testing; as pt denies s/s. Pt reports being in contact with someone (co-worker) who recently tested positive. MAKI Pfeiffer Attn: Account[address] [place], [address], [facility] 04/06/2020 11:26:00 OBGyn Episode No OBEpisode recorded.
[2024-10-04 06:21] VITALS: BP 119/82; PULSE 60; RESP 16; TEMP 36.1; O2SAT 96; BMI 26.9
[2024-10-04] MEDS: LACTATED RINGERS 1,000 ML 150 ML IV CONT (06:35)
--- NOTE | 2024-10-04 07:14 | WPDANESEPPF ---
Anes - Initial Pre Proc Eval Procedure: Operation Date: 10/04/24 07:30 Proposed Procedures p Screening Colonoscopy - Tyron Richard MD Date/Time: 10/04/24 07:14 Surgeon: Tyron Richard MD Pre Op Diagnosis: screening colon Patient Data Age: 49 Gender: F Height: 1.68 m Weight: 75.5 kg Last Vital Signs Temp 36.1 C L 10/04/24 06:21 Pulse 60 10/04/24 06:21 Resp 16 10/04/24 06:21 BP 119/82 10/04/24 06:21 Pulse Ox 96 10/04/24 06:21 O2 Del Method Room Air 10/04/24 06:21 Allergies Allergy/AdvReac Type Severity Reaction Status Date / Time No Known Allergies Allergy Verified 10/04/24 06:20 Home Medications ?Medication ?Instructions ?Recorded ?Confirmed ?Type trazodone 50 mg tablet 50 mg PO QHS PRN insomnia #30 tabs 05/24/24 09/26/24 Rx fluoxetine 40 mg capsule 40 mg PO DAILY #90 caps 06/18/24 10/04/24 Rx Patient hx anesthesia problems: none Family hx anesthesia problems: none Results Review: All pre-operative results and documents have been reviewed as part of the pre-operative evaluation. [facility], [facility] Surgical History Surgical History History of tubal ligation History of delivery Family History Family History Mother Hypertension Heart disease Social History Social History Social History: Smoking packs per day: 1 Smoking cigarettes per day: 20.0 Years smoked: 30 Smoking pack-years: 30.00 Smoking status: Former smoker Tobacco type: cigarettes Second hand tobacco smoke exposure: Yes Smoking end date: 04/14/22 Alcohol intake: current Alcohol use details: occasionally Substance use: never Substance use type: does not use Last use: apr 2021 Do You Feel Safe in your Home?: Yes Lack of Transportation: No Lack of Food: Never True Current Housing: I Have Housing Concerned About Future Housing: No Difficulty Paying Gas/Electric Bills: No Difficulty Paying for Meds: No Currently Unemployed: No Education: Don't Know Difficulty w/ Childcare or Family Care: No Living arrangements: with family Occupation/Education: occupation 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[employer] Gender identity (if verbalized by the patient): Female Sexual Orientation (if Verbalized by the Patient): Straight or Heterosexual Spiritual care concerns: No Anes - Eval Final PreProcedure Day of Procedure 10/04/24 07:14 Patient weight: overweight Heart: regular rate and rhythm Lungs: clear to auscultation Airway: Mallampati scale class II Neurological: alert and oriented Last oral intake: >/= 8 hours ASA classification: III Emergent: no Anesthetic plan: proceed Anesthesia type and monitoring: general GIVS and standard monitoring Results Review: All pre-operative results and documents have been reviewed as part of the pre-operative evaluation. Informed Consent: The patient's anesthetic plan and its attendant risks and benefits were discussed with the patient/family/POA. Questions were solicited and answers provided to the satisfaction of the patient/family/POA.
--- NOTE | 2024-10-04 07:29 | PM.IMHP ---
H&P: HPI History of Present Illness Date/Time: 10/04/24 07:29 Chief Complaint: Screening colonoscopy Narrative: This is the patient's first colonoscopy. There are no GI symptoms and there is no family history of colorectal cancer. Review of Systems Review of Systems: All systems reviewed & are unremarkable except as noted in HPI and below PMFSH Surgical History Surgical History History of tubal ligation History of delivery Family History Family History Mother Hypertension Heart disease Social History Social History Social History: Smoking packs per day: 1 Smoking cigarettes per day: 20.0 Years smoked: 30 Smoking pack-years: 30.00 Smoking status: Former smoker Tobacco type: cigarettes Second hand tobacco smoke exposure: Yes Smoking end date: 04/14/22 Alcohol intake: current Alcohol use details: occasionally Substance use: never Substance use type: does not use Last use: apr 2021 Do You Feel Safe in your Home?: Yes Lack of Transportation: No Lack of Food: Never True Current Housing: I Have Housing Concerned About Future Housing: No Difficulty Paying Gas/Electric Bills: No Difficulty Paying for Meds: No Currently Unemployed: No Education: Don't Know Difficulty w/ Childcare or Family Care: No Living arrangements: with family Occupation/Education: occupation 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[employer] Gender identity (if verbalized by the patient): Female Sexual Orientation (if Verbalized by the Patient): Straight or Heterosexual Spiritual care concerns: No Meds Home Medications and Allergies Home Medications ?Medication ?Instructions ?Recorded ?Confirmed ?Type trazodone 50 mg tablet 50 mg PO QHS PRN insomnia #30 tabs 05/24/24 09/26/24 Rx fluoxetine 40 mg capsule 40 mg PO DAILY #90 caps 06/18/24 10/04/24 Rx Allergies Allergy/AdvReac Type Severity Reaction Status Date / Time No Known Allergies Allergy Verified 10/04/24 06:20 Vital Signs Vital Signs - 24 hr 10/04/24 06:21 Temperature 97 F L Pulse Rate 60 Respiratory Rate 16 Blood Pressure 119/82 Pulse Oximetry 96 Oxygen Delivery Room Air Exam Const: General: cooperative and healthy appearing Resp: Effort & Inspection: normal respiratory effort and able to speak in complete sentences Auscultation: clear to auscultation bilaterally Cardio: Rate: regular rate Rhythm: regular rhythm GI: Inspection: normal to inspection GI Palp: No No hepatosplenomegaly present Auscultation: normal bowel sounds Rectal Exam: deferred Skin: General skin exam: normal color Psych: Appearance: grossly normal Mental Status: mental status grossly normal Assessment and Plan Assessment and plan (1) Colon cancer screening: Code(s): Z12.11 - Encounter for screening for malignant neoplasm of colon Status: Acute Assessment and Plan: The patient is deemed a good candidate for the procedure. Consent signed. Will proceed.
[2024-10-04 07:47] VITALS: BP 78/31; PULSE 63; RESP 17; O2SAT 100
[2024-10-04 07:57] VITALS: BP 85/49; PULSE 62; RESP 17; O2SAT 100
[2024-10-04 08:07] VITALS: BP 104/69; PULSE 60; RESP 15; O2SAT 100
== END 2024-10-04 08:17 | disposition home or self-care (01) ==
PROVIDERS: PCP Student in an Organized Health Care Education/Training Program; Referring Provider Student in an Organized Health Care Education/Training Program; Visit Provider Internal Medicine Gastroenterology
PROC: 0DJD8ZZ Inspection of Lower Intestinal Tract, Via Natural or Artificial Opening Endoscopic (ICD-10-PCS; CPT 45378; principal; 2024-10-04 07:30)
DX: Z12.11 Encounter for screening for malignant neoplasm of colon (principal); K62.1 Rectal polyp; Z98.890 Other specified postprocedural states; Z98.51 Tubal ligation status; Z87.891 Personal history of nicotine dependence; Z82.49 Family history of ischemic heart disease and other diseases of the circulatory system
CPT/HCPCS: 45385; 88305; J1596; J2704; J7120

== ENCOUNTER 2024-10-10 09:08 | Outpatient (CLI) | payer OTHER, SELFPAY ==
--- NOTE | ~2024-10-10 | MMUS_ITS ---
EXAMINATION: US breast RT limited, MM diagnostic renee BI w peter HISTORY: Palpable right breast abnormality TECHNIQUE: Additional 3-D tomosynthesis images of the breasts were performed and synthetic 2-D images were generated. CAD analysis was submitted and interpreted. High resolution Limited right breast ult rasound was performed. COMPARISON: None 06/27/2023 BREAST PARENCHYMAL COMPOSITION: Not dense: There are scattered areas of fibroglandular density. FINDINGS: MAMMOGRAPHIC FINDINGS: There are no suspicious masses, calcifications or architectural distortion in either breast to sugges t malignancy. ULTRASOUND: Targeted right breast ultrasound: Normal heterogeneous echotexture without focal solid or cystic mass . IMPRESSION: 1. No evidence for malignancy in either breast. 2. Routine yearly screening mammogram and regular clinical breast examination are recommended. BI-RADS Category 1: Negative Reviewed, dictated and finalized at location A. IMPRESSION: 1. No evidence for malignancy in either breast. 2. Routine yearly screening mammogram and regular clinical breast examination a re recommended. BI-RADS Category 1: Negative
--- OUTSIDE RECORDS SUMMARY | 2024-10-10 09:13 | XMS_ITS | Referral Summary ---
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
--- OUTSIDE RECORDS SUMMARY | 2024-10-10 09:13 | XMS_ITS | Data Portability ---
[facility] Address [address] [place] [address] Assessment Encounter Date Assessment Date Assessment LastModified by Organization Details LastModified Time 12/14/2017 12/14/2017 discussed heavy/painful cycles. SMokes an occ cigarette, not regular smoker - will try OCPs and no smoking. 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 Overdue for mammo as well. Exam is normal. Didnt tolerate OCPs as RXd last December. ( nausea) Periodss tolerable at this point and still is smoking. 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 STill smoking, painful periods might [...] SARS CoV 2 RNA (COVID-19) , QL, screen examiner-PCR, respirator y specimen - [facility] 1230 2019 020 [facility] (Lab), [address] [place], [address], 0 09:43:15 unlisted lab - igp, rfx aptima HPV ascu 2019 020 [facility], [address], [address], [place], [address], 0 07:26:20 unlisted lab - igp, rfx aptima HPV ascu 2019 020 [facility], [address], [place], [address], 0 16:11:01 unlisted lab - igp, rfx aptima HPV ascu 2018 019 [facility], [address], [address], [place], [address], 9 16:17:56 Referral None recorded. Procedures None recorded. Surgeries None recorded. Imaging MAMMO, screening, digital, bilateral 2019 020 Not available 0 14:55:50 MAMMO, screening, digital, bilateral 2018 019 [facility] Not available 9 11:05:05 Medication Orders Sprintec (28) 0.25 mg-0.035 mg tablet 2017 018 INTERFACE [facility], [address] [place] [address], [address], 8 12:33:35 Patient TargetsNo targets recorded. Patient Instructions Encounter Date Encounter Id Patient Instructions Last Modified By Organization Details Last Modified Time 12/14/2017 [id number] painful menstrua l cramps: care instructions gter Not available 12/14/2017 12:33:32 07/17/2018 [id number] learning about breast cancer screening gturner Not available 07/17/2018 14:49:08 07/19/2019 [id number] learning about breast cancer screening gturner Not available 07/19/2019 14:55:50 01/21/2020 [id number] abnormal Pap test: care instructions Not available 01/21/2020 16:55:03 04/06/2020 [id number] Reviewed the following recommendations: -Stay home and [...] OR ALVARADO SANCHES . Not Available [facility] ([facility]) [address] [facility], [place], [address], 07/19/2018 16:17:56 07/18/19 19 07/19/2018 pap, IG + refle x HR HPV specimen adequacy: Vidhya stinson Satis facto ry for evalu ation . Endoc ervic al and/o r squam ous metap lasti c cells (endo cervi breanna compo nent) are prese nt. Not Available [facility] ([facility]) [address] [facility], [place], [address], 07/19/2018 16:17:56 07/18/19 19 07/19/2018 pap, IG + refle x HR HPV clinician provided ICD10: Vidhya stinson Z01.4 19 Not Available [facility] ([facility]) [address] [place], [address], 07/19/2018 16:17:56 07/18/19 19 07/19/2018 pap, IG + refle x HR HPV performed by: Vidhya Sandoval th, Cytot echno logis t (ASCP ) Not Available [facility] ([facility]) [address] [facility], [place], [address], 07/19/2018 16:17:56 07/18/19 19 07/19/2018 pap, IG + refle x HR HPV . . Not Available [facility] ([facility]) [address] [place], [address], 07/19/2018 16:17:56 07/18/19 19 07/19/2018 pap, IG [...] ts do occur . Not Available [facility] ([facility]) [address] [facility], [place], [address], 07/19/2018 16:17:56 07/18/19 19 07/19/2018 pap, IG + refle x HR HPV test methodology: Commen t This liqui d based ThinP rep(R ) pap test was scree jean with the use of an image guide d syste m. Not Available [facility] ([facility]) [address] [place], [address], 07/19/2018 16:17:56 07/18/19 19 07/19/2018 pap, IG + refle x HR HPV . Commen t The HPV DNA refle x crite benji were not met with this speci men resul t there fore, no HPV testi ng was perfo rmed. Not Available [facility] ([facility]) [address] [facility], [place], [address], 07/19/2018 16:17:56 07/19/19 20 07/24/2019 pap, IG [...] L ABNOR MALIT IES. Not Available [facility] ([facility]) [address] [facility], [place], [address], 07/25/2019 16:11:01 07/19/19 20 07/24/2019 pap, IG + refle x HR HPV specimen adequacy: Vidhya t Satis facto ry for evalu ation . Endoc ervic al and/o r squam ous metap lasti c cells (endo cervi breanna compo nent) are prese nt. Not Available [facility] ([facility]) [address] [facility], [place], [address], 07/25/2019 16:11:01 07/19/19 20 07/24/2019 pap, IG + refle x HR HPV clinician provided ICD10: Vidhya stinson Z01.4 19 Not Available [facility] ([facility]) [address] [place], [address], 07/25/2019 16:11:01 07/19/19 20 07/24/2019 pap, IG + refle x HR HPV performed by: Vidhya Del Angel on, Cytot echno logis t (ASCP ) Not Available [facility] ([facility]) [address] [place], [address], 07/25/2019 16:11:01 07/19/19 20 07/24/2019 pap, IG + refle x HR HPV electronical ly signed by: Vidhya sanabria MD, Patho logis t Not Available [facility] ([facility]) [address] [place], [address], 07/25/2019 16:11:01 07/19/19 20 07/24/2019 pap, IG + refle x HR HPV . . Not Available [facility] ([facility]) [address] [facility], [place], [address], 07/25/2019 16:11:01 07/19/19 20 07/24/2019 pap, IG + refle x HR HPV pathologist provided ICD10: Commen t R87.6 10 Not Available [facility] ([facility]) [address] [facility], [place], [address], 07/25/2019 16:11:01 07/19/19 20 07/24/2019 pap, IG [...] ts do occur . Not Available [facility] ([facility]) [address] [facility], [place], [address], 07/25/2019 16:11:01 07/19/19 20 07/24/2019 pap, IG + refle x HR HPV test methodology: Commen t This liqui d based ThinP rep(R ) pap test was scree jean with the use of an image guide marco a systirma m. Not Available [facility] ([facility]) [address] [place], [address], 07/25/2019 16:11:01 07/19/19 20 07/24/2019 pap, IG + refle x HR HPV . Commen t See below for HPV testi ng resul ts. Not Available [facility] ([facility]) [address] [facility], [place], [address], 07/25/2019 16:11:01 07/19/19 20 07/25/2019 pap, IG + refle x HR HPV HPV aptima Positi ve negati ve abnormal This nucle ic acid ampli ficat ion test detec ts fourt een high- risk HPV types (16,1 8,31, 33,35 ,39,4 5,51, 52,56 ,58,5 9,66, 68) witho ut diffe renti ation . Not Available [facility] ([facility]) [address] [facility], [place], [address], 07/25/2019 16:11:01 01/21/20 20 01/22/2020 pap, IG + refle x HR HPV diagnosis: Vidhya stinson NEGAT GEORGETTE FOR INTRA EPITH ELIAL CLINTON Gunter OR ALVARADO SANCHES . Not Available [facility] ([facility]) [address] [facility], [place], [address], 01/23/2020 07:26:20 01/21/20 20 01/22/2020 pap, IG + refle x HR HPV specimen adequacy: Vidhya stinson Satis facto ry for evalu ation . Endoc ervic al and/o r squam ous metap lasti c cells (endo cervi breanna compo nent) are prese nt. Not Available [facility] ([facility]) [address] [facility], [place], [address], 01/23/2020 07:26:20 01/21/20 20 01/22/2020 pap, IG + refle x HR HPV clinician provided ICD10: Vidhya stinson R87.6 10 Not Available [facility] ([facility]) [address] [facility], [place], [address], 01/23/2020 07:26:20 01/21/20 20 01/22/2020 pap, IG + refle x HR HPV performed by: Vidhya Pizano , Cytot luc stinson (ASCP ) Not Available [facility] ([facility]) [address] [facility], [place], [address], 01/23/2020 07:26:20 01/21/2001/22/2020 pap, IG + refle x HR HPV . . Not Available [facility] ([facility]) [address] [facility], [place], [address], 01/23/2020 07:26:20 01/21/2001/22/2020 pap, IG + refle [...] ts do occur . Not Available [facility] ([facility]) [address] [facility], [place], [address], 01/23/2020 07:26:20 01/21/2001/22/2020 pap, IG + refle x HR HPV test methodology: Commen t This liqui d based ThinP rep(R ) pap test was scree jean with the use of an image guide d syste m. Not Available [facility] ([facility]) [address] [facility], [place], [address], 01/23/2020 07:26:20 01/21/2001/22/2020 pap, IG + refle x HR HPV . Commen t The HPV DNA refle x crite benji were not met with this speci men resul t there fore, no HPV testi ng was perfo rmed. Not Available [facility] ([facility]) [address] [facility], [place], [address], 01/23/2020 07:26:20 07/27/19 19 07/24/2018 MAMMO , scree sonido, digit al, bilat eral No observ ation record ed. [email or web address] [address] [place], [address], 07/26/2018 11:05:25 Result Notes None recorded. Problems Name Problem SNOMED Code Status Onset Date Resolution Date Notes Provider Name and Address Organization Details Recorded Time Menometrorrhag ia 449099937 Active 2017 Lupe gunter MA null, [facility] 8 12:20:21 Problem Notes None recorded. Procedures Surgical History Date Name Laterality Status Provider Name and Address Organization Details Recorded Time 0 Date of Last Pap Smear completed Lupe Garcia MA [facility] 07/25/2019 17:14:29 9 Most Recent Mammogram completed Brandi Maria RN [facility] 07/26/2018 11:05:40 3 Tubal Ligation completed Lupe Garcia MA [facility] 12/14/2017 12:23:50 8 delivery completed Brandi Maria RN [facility] 01/09/2018 15:25:09 Imaging Results None recorded. Procedure Notes None recorded. Medical Equipment None [...] Updated DateTime 07/17/2018 168.91 cm 23.7 kg/m2 34157.54 g 106 mm[Hg] 75 mm[Hg] Lupe gunter MA [facility] 9 14:46:11 Date Recorded Body height Body mass index (BMI) Body weight Systolic blood pressure Diastolic blood pressure Provider Name and Address Organization Details Last Updated DateTime 07/19/2019 168.91 cm 24.7 kg/m2 60729.25 g 106 mm[Hg] 82 mm[Hg] Lupe gunter MA [facility] 0 14:41:33 Date Recorded Body height Body mass index (BMI) Body weight Systolic blood pressure Diastolic blood pressure Provider Name and Address Organization Details Last Updated DateTime 12/14/2017 168.91 cm 25 kg/m2 06571.44 g 118 mm[Hg] 80 mm[Hg] Lupe gunter MA [facility] 8 12:19:40 Date Recorded Body height Body mass index (BMI) Body weight Systolic blood pressure Diastolic blood pressure Provider Name and Address Organization Details Last Updated DateTime 01/21/2020 168.91 cm 24.6 kg/m2 35938.46 g 108 mm[Hg] 66 mm[Hg] Freida Raygoza Garrett [facility] 0 16:52:47 Social History Question Answer Notes LastModified by Organizat ion Details LastModified Time Tobacco Smoking Status Current Every Day Smoker Lupe Garcia MA null, [facility] 12/14/2017 12:22:39 What Was The Date [...] SNOMED-CT Code Diagnosis ICD10 Code Diagnosis Note [id number] MD Leonard Suarez 14 [address] [facility] [place] [address] 12/14/2017 11:49:03 12/20/2017 10:27:49 Dysmenorrhea 104154985 N94.6 [id number] MD Leonard Suarez [address] [place] [address] 07/17/2018 14:12:29 07/17/2018 16:51:15 Gynecologic examination 09643023 Z01.419 Screening for malignant neoplasm of breast 359234775 Z12.31 [id number] MD Leonard Suarez [address] [facility] [place] [address] 07/19/2019 14:30:04 07/22/2019 09:28:07 Gynecologic examination 46399494 Z01.419 Screening for malignant neoplasm of breast 686886965 Z12.31 Dysmenorrhea 280176525 N 94.6 [id number] MD Leonard Suarez 13 [address] [facility] [place] [address] 01/21/2020 16:44:27 01/22/2020 11:24:58 Atypical squamous cells of undetermined significance on cervical Papanicolaou smear 818756868 R87.187 [id number] Barbara Triplett, [employer] [place] [address] [place] [address] 04/06/2020 09:59:24 04/07/2020 09:58:36 Viral screening 519509384 Z11.59 Viral syndrome 930219453 B34.9 Health Concerns Section Related Observation LastModified by Organization Detai ls LastModified Time None Recorded Concern Status LastModified by Organization Details LastModified Time None Recorded Advance Directives Directive None Recorded Payers Encounter Date Sequence Insurance Name Policy Number Policy Chavez Covered Member ID Chavez Member ID Guarantor Name 12/14/2017 1 [employer] (POS II) [id number] Leeann Tite [id number] Leeann M Tite 07/17/2018 1 [employer] (POS II) [id number] Leeann Tite [id number] Leeann M Tite 07/19/2019 1 [employer] (POS II) [id number] Leeann Tite [id number] Leeann M Tite 01/21/2020 1 [employer] (POS II) [id number] Leeann Tite [id number] Leeann M Tite 04/06/2020 1 [employer] (POS II) [id number] Leeann Tite [id number] Leeann M Tite Notes Date Note [...] PMDD Husam Barajas MD Attn: [address] [place], [address], [facility] 07/17/2018 14:56:30 07/19/2019 text/html Annual GYNReport ed [...] PMDD Husam Barajas MD Attn: [address] [place], [address], [facility] [place] 07/19/2019 14:56:55 04/06/2020 text/html Pt with a histor y of tobacco use is requesting COVID-19 testing; as pt denies s/s. Pt reports being in contact with someone (co-worker) who recently tested positive. MAKI Pfeiffer Attn: [address] [place], [address], [facility] 04/06/2020 11:26:00 OBGyn Episode No OBEpisode recorded.
--- OUTSIDE RECORDS SUMMARY | 2024-10-10 09:13 | XMS_ITS | Clinical Summary ---
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
== END 2024-10-10 09:09 | disposition home or self-care (01) ==
LOC: ANHIMG 09:11
PROVIDERS: PCP Student in an Organized Health Care Education/Training Program; Visit Provider Obstetrics & Gynecology
DX: R92.30 Dense breasts, unspecified (principal)
CPT/HCPCS: 76642; 77062; 77066; G0279

== ENCOUNTER 2025-01-17 16:20 | Outpatient (CLI) | payer OTHER, SELFPAY ==
--- NOTE | ~2025-01-17 | XR_ITS ---
Lumbar spine series Indication: Low back pain Comparison: None Technique: 3 views lumbar spine Findings: 5 nonrib-bearing lumbar-type vertebral bodies. No acute fracture. No listhesis. Vertebral bodies normal height. Disc spaces maintained. No significant degenerative changes. SI joints congruent. Sacrum intact. IMPRESSION: 1. No acute findings. Reviewed, dictated and finalized at location R. IMPRESSION: 1. No acute findings.
--- OUTSIDE RECORDS SUMMARY | 2025-01-17 16:23 | XMS_ITS | Clinical Summary ---
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
== END 2025-01-17 16:21 | disposition home or self-care (01) ==
PROVIDERS: PCP Family Medicine; Visit Provider Physician Assistant
DX: M54.50 Low back pain, unspecified (principal)
CPT/HCPCS: 72100